=== PATIENT | female | born 1950 | race Caucasian/White ===

== ENCOUNTER → 2016-08-04 | Day surgery (SDC) | payer OTHER ==
[~2016-08-04] MED LIST: APIX2.5T PO; BUPIVACAINE HCL PF 0.5% 10 ML VIAL ONE; CO Q200C PO; CYMB60CA PO; KETOROLAC TROMETHAMINE 30 MG/ML (IVP) VIAL ONE; LACTATED RINGER'S 1000 ML INJ 1,000 ML ONE; LYSI1000 PO; MULT1TAB46 PO; NORC7.5T PO; ONDANSETRON HCL 4 MG/2 ML VIAL IV PUSH ONE; PROPOFOL 200 MG/20 ML AMP IV ONE; VITA10002 PO; Z.0.COMMODE-3:1; ceFAZolin 2 GM PREMIX 50 ML ONE
--- NOTE | 2016-08-04 15:26 | TN ---
cc: MARISEL CAMPBELL DATE OF SURGERY: 08/04/2016. PRINCIPAL DIAGNOSIS: Chronically obstructed right nipple duct. POSTOPERATIVE DIAGNOSIS: Chronically obstructed right nipple duct. OPERATIVE PROCEDURE PERFORMED: Excision of obstructed right nipple duct. SURGEON: Marisel Campbell MD. ANESTHESIA: General via LMA device. INDICATIONS FOR THE PROCEDURE: The patient is a 65-year-old female who presented with recurrent abscesses in the periareolar one o'clock area of the right breast. She has had two prior episodes requiring drainage and her symptoms are most consistent with an obstructed right nipple duct. She now presents for excision of the obstructed duct. FINDINGS AT SURGERY: Scar tissue extending from an indurated erythematous nodule at one o'clock 1 cm from the nipple was noted and it did extend down to the nipple area. Scar tissue was also causing a deep right nipple cleft. No pathologic lesions were identified. DESCRIPTION OF THE PROCEDURE IN DETAIL: After informed consent was obtained and site verification was performed, the patient was given 0.5% Marcaine plain to anesthetize the periareolar area. Sharp dissection as well as electrocautery was then performed to remove the indurated skin and underlying obstructive ductal tissue. The specimen was oriented with the skin anterior, one short suture superiorly, and one long suture laterally. Sharp dissection was then performed in the region of the nipple cleft to release the scar tissue. Any nipple skin did remain intact throughout this dissection. Hemostasis was easily obtained with electrocautery and the wound was closed using a 3-0 Vicryl subcutaneous suture and a 4-0 Monocryl subcuticular super suture. Steri-Strips and sterile dressing were applied. The patient tolerated the procedure well with minimal blood loss. She was extubated in the operating room and brought to recovery room in good condition. MD EMERY Stahl/ISDRA /1:22 PM /3:17 PM
== END | disposition home or self-care (01) ==
LOC: ESDC 09:55
PROVIDERS: ATTEND Surgery
DX: N64.89 Other specified disorders of breast (principal); N64.52 Nipple discharge
CPT/HCPCS: 00400; 19110; 88305; J0690; J1885; J2405; J3010; J7120